=== PATIENT | male | born 1960 | race Caucasian/White ===

== ENCOUNTER 2025-09-08 03:35 | Emergency (ER) | payer MEDICAID ==
[~2025-09-08] VITALS: Ht 177.8 cm; Wt 90.4 kg
[2025-09-08 03:43] VITALS: TEMP 98.2
--- NOTE | 2025-09-08 06:27 | Physician Documentation ---
History of Present Illness General Chief Complaint: Finger pain Stated Complaint: FINGER PAIN//INFECTION Time Seen by MD: 06:11 Source: patient Mode of Arrival: POV History of Present Illness Initial Comments 64 y/o M with no relevant PMH presenting with 4 days of R index finger pain and swelling. Per patient he poked his finger with a wire brush, he felt like there was "something stuck in there" which he attempted to retrieve with an unclean needle. The initial wound healed over however his finger began to swell and become tight; he states the pain is "the worst he has ever felt." 2 days ago his other fingers on his R hand began to hurt, though he states he has been clenching his hand in pain which may be the cause. Pain was not relieved by ice or heat packs, ibuprofen, iodine, benodyne lin, or an attempt to disinfect with hydrogen peroxide. Timing/Duration: days Severity: severe Modifying Factors: improves with cold therapy, improves with medication Associated Symptoms: denies symptoms Medication Reconciliation Allergies: Coded Allergies: dicloxacillin (Verified Allergy, Unknown, HIVES, 09/08/25) Scheduled Cephalexin*Monohydrate* (Keflex*), 2 CAP PO BID Sulfamethoxazole/Trimethoprim (Septra Ds Tab), 1 TAB PO BID Scheduled PRN Hydrocodone Bit/Acetaminophen (Hydrocodone-Apap 10-325 Tablet), 1 TABLET PO Q8H PRN for pain Past Medical History Past Medical History: No Pertinent History Review of Systems All Other Systems at this time: Reviewed and Negative Physical Exam Physical Exam Vital Signs: Temperature: 98.2, Source: Oral, Heart Rate: 82, Respiratory Rate: 16, BP: 172/99, Pulse Oximetry: 99, Weight: 90.400 Oxygen Flow Rate: 0 Physical Exam VITALS: Reviewed and as above. GENERAL: Alert, in moderate distress, bent over and clenching R hand. HEENT: Normocephalic, atraumatic, PERRL, EOMI, dry mucosa, no erythema MUSCULOSKELETAL No deformities, no edema SKIN: R Index finger - Erythema, warmth, edema from the finger tip to PIP joint with tenderness to palpation, most severe at the fingertip. Healed-over scab on the fingertip. Rest of R hand appears normal with warm, dry skin and no tenderness. L hand appears normal with warm, dry skin. NEURO: Oriented x4, No motor or sensory deficit PSYCH: Normal mood and affect, no agitation Progress Results/Orders Results/Orders Orders - CLARY JONES MD Finger(S) (09/08/25 ) Completed Orders - CLARY JONES MD Oxycodone/Acetaminophen Tablet (Percocet (09/08/25 06:20) Ketorolac Trometh 15mg/Ml Vial (Toradol (09/08/25 06:20) Finger(S) (09/08/25 ) Sulfamethox/Trimetho. Ds Tab (Septra Ds (09/08/25 07:20) Cephalexin Capsule (Keflex Capsule) (09/08/25 07:25) Vital Signs 09/08/25 09/08/25 09/08/25 09/08/25 03:43 06:55 06:56 07:28 Temp 98.2 Pulse 82 Resp 16 20 20 14 B/P (MAP) 172/99 Pulse Ox 99 O2 Flow Rate 0 09/08/25 09/08/25 09/08/25 07:28 07:35 08:07 Pulse 80 71 Resp 14 16 16 B/P (MAP) 164/90 (114) 157/88 Pulse Ox 98 97 O2 Flow Rate 0 EKG/XRAY/CT/US/VASC/MRI Bone/Soft Tissue X-Ray (Ext.) : Additional Comment Patient: TROY RIOS Medical Record: [id number] [facility] 1960, Age: 64 Sex: Male Location: ER Patient Status: REG ER Service Date/Time: 09/08/25 Ordering Physician: CLARY JONES MD Exam: FINGER(S) DI FINGER(S), INDICATION: pain swelling TECHNICAL DATA: Frontal view of the left hand and lateral and oblique views of the left thumb were obtained. COMPARISON: None FINDINGS: No fracture is identified. Joint spaces are maintained. Alignment is anatomic. Mild soft tissue swelling of the fingers. There is a radiodensity overlying the 5th digit. IMPRESSION: 1. No acute fracture or dislocation of the right hand. 2. Radiodensity overlying the 5th digit of uncertain etiology but may reflect foreign body. 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 The patient would not stop complaining about the pain the patient was apparently draining pus he was offered an incision and drainage and he did not want the finger to be incised, the patient was given a prescription for Keflex as well as Septra he was also given pain medication prescription. There was no evidence of flexor tendon involvement. The patient will be discharged with instructions to follow up as an outpatient the patient has old record has been reviewed the patient has pulse oximetry was interpreted as adequate and normal Differential Diagnosis Cellulitis, abscess phelon Departure Disposition: HOME / SELF CARE / HOMELESS Impression: Primary Impression: Cellulitis Qualified Codes: L03.011 - Cellulitis of right finger Discharge Instructions: Cellulitis, Adult Referrals: NO PRIMARY CARE PROVIDER (PCP) Prescriptions Hydrocodone Bit/Acetaminophen (Hydrocodone-Apap 10-325 Tablet) 10mg/325mg Tablet 1 TABLET PO Q8H PRN for pain, #8 TABLET Prov: CLARY JONES MD 09/08/25 Sulfamethoxazole/Trimethoprim (Septra Ds Tab) 800 Mg/160 Mg Tablet 1 TAB PO BID, #14 TAB Prov: CLARY JONES MD 09/08/25 Cephalexin*Monohydrate* (Keflex*) 500 Mg Capsule 2 CAP PO BID, #28 CAP Prov: CLARY JONES MD 09/08/25 Signature Scribe Signature: No scribe Attestation: The note accurately reflects work and decisions made by me.Clary Jones MD 09/09/25 06:33 CLARY JONES MD Sep 08, 2025 06:27
--- NOTE | 2025-09-08 06:51 | RADIOLOGY REPORT ---
DI FINGER(S), INDICATION: pain swelling TECHNICAL DATA: Frontal view of the left hand and lateral and oblique views of the left thumb were obtained. COMPARISON: None FINDINGS: No fracture is identified. Joint spaces are maintained. Alignment is anatomic. Mild soft tissue swelling of the fingers. There is a radiodensity overlying the 5th digit. IMPRESSION: 1. No acute fracture or dislocation of the right hand. 2. Radiodensity overlying the 5th digit of uncertain etiology but may reflect foreign body.
[2025-09-08] MEDS: oxyCODONE/APAP 5-325mg tablet PO ONE (06:55)
[2025-09-08] MEDS: ketorolac trometh 15mg/ml vial 15 MG/ML ML IM ONE (06:56)
[2025-09-08] MEDS: sulfamethoxazole/trimethoprim DS (800/160mg) tablet PO ONE (07:33)
[2025-09-08] MEDS ORDERED: HYDR-3973 PO (07:53)
[2025-09-08] MEDS ORDERED: CEPH-585 PO (07:53)
[2025-09-08] MEDS ORDERED: SULF1TAB45 PO (07:53)
[2025-09-08 08:07] VITALS: BP 157/88; PULSE 71; RESP 16; O2SAT 97
== END 2025-09-08 08:06 | disposition home or self-care (01) ==
LOC: ER 03:38
DX: L03.011 Cellulitis of right finger (principal); Z88.8 Allergy status to other drugs, medicaments and biological substances; Z79.899 Other long term (current) drug therapy
CPT/HCPCS: 73140; 96372; 99284; J1885

== ENCOUNTER 2025-09-08 16:05 | Emergency (ER) | payer MEDICAID ==
[~2025-09-08] VITALS: Ht 177.8 cm; Wt 89.7 kg
[~2025-09-08 16:05] MED LIST: CEPH-585 PO; HYDR-3973 PO; SULF-16 PO
[2025-09-08 16:09] VITALS: BP 169/93; PULSE 108; RESP 16; O2SAT 100
--- NOTE | 2025-09-08 16:21 | Physician Documentation ---
History of Present Illness ~ Chief Complaint: Finger pain Stated Complaint: FINGER PAIN Time Seen by MD: 17:49 HPI This is a 64-year-old male who was seen earlier today for an infection to his right 2nd finger, patient presents back due to continued pain to the area with concern for purulent drainage from the fingertip, patient is requesting the purulent drainage to be drain from his finger. Patient reports no other acute symptoms or concerns including no worsening swelling to the finger and no fever. Tetanus within 5 years: Yes Medication Reconciliation Allergies: Coded Allergies: dicloxacillin (Verified Allergy, Unknown, HIVES, 09/08/25) Scheduled Cephalexin*Monohydrate* (Keflex*), 2 CAP PO BID Sulfamethoxazole/Trimethoprim (Septra Ds Tab), 1 TAB PO BID Scheduled PRN Hydrocodone Bit/Acetaminophen (Hydrocodone-Apap 10-325 Tablet), 1 TABLET PO Q8H PRN for pain Past Medical History Past Medical History: No Pertinent History Review of Systems ROS As stated above in the HPI, otherwise all systems are reviewed and negative. Physical Exam Vital Signs: Temperature: 97.6, Heart Rate: 108, Respiratory Rate: 16, BP: 169/93, Pulse Oximetry: 100, Weight: 89.700 Oxygen Flow Rate: 0 Physical Exam VITALS: Reviewed and as above. GENERAL: Alert, nontoxic appearing, no apparent distress. RESPIRATORY: No increased work of breathing, no respiratory distress, speaking in full clear sentences MUSCULOSKELETAL: No tenderness to right palm, no fusiform swelling of right 2nd finger, no micro motion tenderness with flexion or extension of right 2nd finger SKIN: Distal tip of right 2nd finger on palmar aspect area of swelling, eryt francisca, and spontaneous purulent discharge Procedures I&D Procedure : Site: Distal tip of right 2nd finger Anesthesia: Lidocaine Volume Anesthetic (mls): 5 Blade Size: 11 Prep/Supplies: dressing applied Incision: mass incised, pus drained Tolerated Procedure Well?: yes, no complications Procedure Note Verbal informed consent obtained, a digital block of the 2nd digit of right hand was performed achieving good anesthesia, after area anesthetized utilizing an 11 blade scalpel Ice slightly enlarged the spontaneous draining area of purulence on the patient's finger and a small amount of purulent material was drained, the area was probed in all loculations broken up, there was no evidence of retained foreign body, a dressing was applied by nursing staff, patient tolerated procedure well no complications. Progress Results/Orders Results/Orders Completed Orders - PREET HANCOCK TOP KNITTER Lidocaine 1% 30ml Vial (Xylocaine 1% Via (09/08/25 18:15) Hydrocodone/Apap 10/325 ([place] 10/325mg (09/08/25 20:05) Vital Signs 09/08/25 09/08/25 16:09 20:49 Temp 97.6 97.6 Pulse 108 Resp 16 B/P (MAP) 169/93 Pulse Ox 100 O2 Flow Rate 0 Medical Decision Making Additional information obtaine: old records Findings This 64-year-old male presented back to the emergency department after being seen earlier in the day discharged on antibiotics for cellulitis to the distal tip of his right finger, physical exam demonstrated a small amount of purulence consistent with a superficial skin infection to the distal tip of the right 2nd finger, there was no evidence of flexor tenosynovitis and the area of spontaneous drainage was slightly enlarged to allow better drainage of purulent material. Patient is otherwise well-appearing I have low suspicion for deep space infection or systemic infection, patient well-appearing and discharged to continue previously prescribed a course of antibiotics. Provided home care instructions return to care precautions, and follow up instructions which he verbalized understanding of. General Diff Dx:Considerations: Include: Hematoma, Laceration, Neurovascular injury, Open fracture Shoulder Diff Dx:Consideration: Unlikely: AC separation, Adhesive capsulitis, Arthritis, Bicipital tendonitis, Calcific tendonitis, Cervical disc disease, Contusion, Dislocation, Fracture-humerus, Fracture-scapula, Fracture-clavicle, GB disease, Hematoma, Impingement syndrome, Myocardial infarction, Neurovascular injury, Open fracture-humerus, Open fracture-scapula, Open fracture-clavicle, Rotator cuff injury, SC dislocatoin, Sprain, Subacromial bursitis, Other Elbow Diff Dx:Considerations: Unlikely: Abrasion, Arthritis, Contustion, DJD, Fracture-humerus, Fracture-radial head, Fracture-radius, Fracture-ulna, Gout, Hematoma, Laceration, Neurovascular injury, Olecranon bursitis, Open fracture, Osteomyelitis, Radial head subluxation, Rheumatoid arthritis, Septic, Sprain, Ulcer, Other Wrist Diff Dx:Considerations: Unlikely: Abrasion, Arthritis, DJD, Gout, Rheumatoid, Septic, Carpal tunnel snydrome, Contusion, Dislocation, Fracture- carpal, Fracture-radius, Fracture-ulna, Ganglion, Laceration, Neurovascular injury, Open fracture, Strain, Other Hand Diff Dx:Considerations: Include: Gout, Hematoma, Tenosynovitis, Cellulitis Finger Diff Dx:Considerations: Include: Abrasion, Cellulitis, Dislocation, Fracture, Hematoma, Laceration, Neurovascular injury, Open fracture, Subungual hematoma, Other (Felon, flexor tenosynovitis) Departure Time of Disposition: 20:32 Disposition: 01 HOME / SELF CARE / HOMELESS Impression: Primary Impression: Abscess Condition: Improved Discharge Instructions: Abscess/Boil Additional Instructions: Use warm moist compresses on the area twice a day otherwise keep the area clean dry and covered until healed. Please take your antibiotics as previously presc ribed. Please follow up with your primary care provider in the next few days. Please return to the emergency department for any new or worsening concerning symptoms. Referrals: NO PRIMARY CARE PROVIDER (PCP) Education Educated: Patient Educated regarding: diagnosis, treatment, prognosis, need for follow up Signature Scribe Signature: No scribe Attestation: The note accurately reflects work and decisions made by me.RENZO Augustine 09/09/25 12:29 PREET HANCOCK Sep 08, 2025 16:21
[2025-09-08] MEDS: LIDOcaine 1% 30ml preserv. free vial IJ ONE (18:25)
[2025-09-08] MEDS: HYDROcodone/acetaminophen 10/325mg tab PO ONE (20:22)
[2025-09-08 20:49] VITALS: TEMP 97.6
== END 2025-09-08 20:50 | disposition home or self-care (01) ==
LOC: ER 16:05
DX: L02.511 Cutaneous abscess of right hand (principal); Z88.1 Allergy status to other antibiotic agents; Z79.899 Other long term (current) drug therapy
CPT/HCPCS: 26010; 99283; J2003; 10060; A6449